=== PATIENT | male | born 1990 | race Caucasian/White ===

== ENCOUNTER 2019-08-17 01:56 | Emergency (ER) | payer SELFPAY ==
[2019-08-17 02:12] VITALS: BP 113/72; PULSE 96; TEMP 98.8; BMI 25.0
--- NOTE | 2019-08-17 02:49 | PDOC ---
Attending Attestation - Resident Resident Name: YazJohn - ED Attending Attestation I have performed the following: I have examined & evaluated the patient, The case was reviewed & discussed with the resident, I agree w/resident's findings & plan - HPI HPI: 08/17/19 02:48 Pt comes with right brow lac; he was working on his own car when the wrench split and a piece struck his right lateral brow, now with multiple small lacs thru the right brow. - Physicial Exam PE: 08/17/19 02:50 A+Ox3 NAD Pt has vision 20/20 bilat; right lateral brow laceration HEENT otherwise normal No neck pain Pt has neuro intact. - Medical Decision Making 08/17/19 03:51 4 absorbable 4.0 chromic gut placed in the wound. 08/17/19 20:45 Home with keflex and reasons to return for wound infection Discharge - Discharge Information Problems reviewed: Yes Clinical Impression/Diagnosis: Laceration Condition: Stable Disposition: HOME - Additional Discharge Information Prescriptions: Cephalexin [Keflex] 500 mg PO BID 5 Days #10 capsule Cephalexin [Keflex] 500 mg PO BID #10 capsule - Follow up/Referral - Patient Discharge Instructions Patient Printed Discharge Instructions: DI for Laceration Repair Additional Instructions: You were seen in the ER for a laceration. Please keep the stitches as dry as possible for 2-3 days. The sutures should dissolve on their own; they do not need to be removed. Return to the ER if you develop high fevers, blood or pus from the site, or it becomes increasingly painful. - Post Discharge Activity
--- NOTE | 2019-08-17 03:51 | PDOC ---
History of Present Illness - General Chief Complaint: Laceration Stated Complaint: FACE LACERATION Time Seen by Provider: 08/17/19 02:35 Past History - Past Medical History Allergies/Adverse Reactions: Allergies Allergy/AdvReac Type Severity Reaction Status Date / Time No Known Allergies Allergy Verified 08/17/19 02:09 Home Medications: Ambulatory Orders No Home Medications 0 dose .ROUTE UTDICT 01/19/13 - Immunization History Immunization Up to Date: Yes - Psycho Social/Smoking Cessation Hx Smoking Status: Yes Smoking History: Never smoked Have you smoked in the past 12 months: No Number of Cigarettes Smoked Daily: 10 Information on smoking cessation initiated: No Hx Alcohol Use: No Drug/Substance Use Hx: No Substance Use Type: None *Physical Exam - Vital Signs Last Vital Signs Temp Pulse Resp BP Pulse Ox 98.8 F 96 H 18 113/72 100 08/17/19 02:10 08/17/19 02:10 08/17/19 02:10 08/17/19 02:10 08/17/19 02:10 Discharge - Discharge Information Problems reviewed: Yes Clinical Impression/Diagnosis: Laceration Condition: Stable Disposition: HOME - Admission No - Follow up/Referral - Patient Discharge Instructions Patient Printed Discharge Instructions: DI for Laceration Repair Additional Instructions: You were seen in the ER for a laceration. Please keep the stitches as dry as possible for 2-3 days. The sutures should dissolve on their own; they do not need to be removed. Return to the ER if you develop high fevers, blood or pus from the site, or it becomes increasingly painful. - Post Discharge Activity
== END 2019-08-17 04:00 | disposition home or self-care (01) ==
LOC: JER 01:56
PROC: 08Q0XZZ Repair Right Eye, External Approach (ICD-10-PCS; principal; 2019-08-17)
DX: S01.111A Laceration without foreign body of right eyelid and periocular area, initial encounter (principal); W22.8XXA Striking against or struck by other objects, initial encounter
CPT/HCPCS: 99283-25